=== PATIENT | female | born 1950 | race Caucasian/White ===

== ENCOUNTER → 2020-03-16 12:12 | Outpatient (BNVA) | payer BC, SELFPAY | PROVIDERS: Visit Provider Nurse Practitioner Family | DX: E55.9 Vitamin D deficiency, unspecified (principal); E78.5 Hyperlipidemia, unspecified; K21.9 Gastro-esophageal reflux disease without esophagitis; R13.10 Dysphagia, unspecified; R53.83 Other fatigue | CPT/HCPCS: 80053; 80061; 82306; 84443; 87338 ==

== ENCOUNTER → 2020-03-17 09:34 | Outpatient (BNVA) | payer BC, SELFPAY | PROVIDERS: Visit Provider Nurse Practitioner Family | DX: K21.9 Gastro-esophageal reflux disease without esophagitis (principal) | CPT/HCPCS: 87338 ==

== ENCOUNTER → 2020-04-03 09:19 | Outpatient (BNVA) | payer BC, SELFPAY | PROVIDERS: Visit Provider Nurse Practitioner Family | DX: Z86.2 Personal history of diseases of the blood and blood-forming organs and certain disorders involving the immune mechanism (principal) | CPT/HCPCS: 85025 ==

== ENCOUNTER → 2020-06-04 14:41 | Outpatient (BNVA) | payer MEDICARE, BC, SELFPAY | PROVIDERS: Visit Provider Internal Medicine | DX: Z01.812 Encounter for preprocedural laboratory examination (principal); Z20.828 Contact with and (suspected) exposure to other viral communicable diseases | CPT/HCPCS: 87635 ==

== ENCOUNTER 2020-06-08 07:44 | Day surgery (SDC) | payer MEDICARE, BC, SELFPAY ==
[2020-06-05 14:01] VITALS: BMI 24.3
[2020-06-08 08:16] VITALS: BP 113/74; PULSE 64; RESP 16; TEMP 36.2; O2SAT 99
[2020-06-08] MEDS: sodium chloride 0.9% 1,000 ML 30 ML IV (08:33)
--- NOTE | 2020-06-08 09:48 | ANES.PREANE2 ---
Pre-Anesthetic Assessment Pre-Anesthetic Assessment: Height/Weight: Height 1.65 m Weight 66.224 kg Temp Pulse Resp BP Pulse Ox 97.2 F L 64 16 113/74 99 06/08/20 08:16 06/08/20 08:16 06/08/20 08:16 06/08/20 08:16 06/08/20 08:16 Preop Diagnosis: dbl Proposed Procedure: Operation Date: 06/08/20 09:00 Proposed Procedures p EGD 77464 K21.9(Not Applicable) - Tu Chandra MD s Colonoscopy 42727 Z12.11(Not Applicable) - Tu Chandra MD Was Beta Khoa taken within 24 hours: N/A Last intake: Intake Last Liquid Date 06/07/20 Last Liquid Time 22:00 Last Solid Date 06/06/20 Last Solid Time 22:00 Social: Social History: No alcohol and No tobacco Exam: Pre-Anes Outpt Exam: alert, oriented x 3, clear to auscultation bilaterally and regular rate & rhythm Airway: Submandibular: WNL Cervical ROM: WNL MP: 2 Dentition: Full History/ROS: No significant history except as noted GI: GI: GERD Comments: food sticks Anesthetic Plan: ASA status: 2 Anesthesia: MAC Risk of > 500 ml blood loss (7ml/kg in children): No Meds/Allergies Current Medications: Current Medications Generic Name Dose Route Start Last Admin Trade Name Freq PRN Reason Stop Dose Admin Sodium Chloride 1,000 mls @ 30 ml s/hr 06/08/20 08:00 06/08/20 08:33 Sodium Chloride 0.9% IV 30 mls/hr .Q24H ROBERTA Administration PFSH Anesthesia PFSH: Medical History (Updated 06/04/20 @ 13:42 by Tu Chandra MD) Hiatal hernia Spastic colon Surgical History Hx of cholecystectomy Social History (Updated 06/04/20 @ 13:23 by VERENICE Cobb) Smoking and tobacco status: former smoker Alcohol intake: never Adopted: No Marital status: Number of children: 2 service: No History of recent travel: No Data Anesthesia Cardiac Studies: No Data to Display
--- NOTE | 2020-06-08 09:49 | ANES.PREANE2 ---
Pre-Anesthetic Assessment Pre-Anesthetic Assessment: Height/Weight: Height 1.65 m Weight 66.224 kg Temp Pulse Resp BP Pulse Ox 97.2 F L 64 16 113/74 99 06/08/20 08:16 06/08/20 08:16 06/08/20 08:16 06/08/20 08:16 06/08/20 08:16 Preop Diagnosis: Gerd, screening Proposed Procedure: Operation Date: 06/08/20 09:00 Proposed Procedures p EGD 68408 K21.9(Not Applicable) - Tu Chandra MD s Colonoscopy 43379 Z12.11(Not Applicable) - Tu Chandra MD Was Beta Khoa taken within 24 hours: N/A Last intake: Intake Last Liquid Date 06/07/20 Last Liquid Time 22:00 Last Solid Date 06/06/20 Last Solid Time 22:00 Last Intake: 22:00 Social: Social History: No alcohol and No tobacco Exam: Pre-Anes Outpt Exam: alert, oriented x 3, clear to auscultation bilaterally and regular rate & rhythm Airway: Submandibular: WNL Cervical ROM: WNL MP: 2 Dentition: Full Pulmonary: Pulmonary: None reported CV/HEM: CV/HEM: None reported : : None reported Hepatic: Hepatic: None reported GI: GI: GERD Metabolic: Metabolic: None reported Musc/skel: Musc/skel: None reported Neuropsych: Neuropsych: None reported Anesthetic Plan: ASA status: 2 Anesthesia: MAC Risk of > 500 ml blood loss (7ml/kg in children): No Meds/Allergies Current Medications: Current Medications Generic Name Dose Route Start Last Admin Trade Name Freq PRN Reason Stop Dose Admin Sodium Chloride 1,000 mls @ 30 ml s/hr 06/08/20 08:00 06/08/20 08:33 Sodium Chloride 0.9% IV 30 mls/hr .Q24H ROBERTA Administration PFSH Anesthesia PFSH: Medical History (Updated 06/04/20 @ 13:42 by Tu Chandra MD) Hiatal hernia Spastic colon Surgical History Hx of cholecystectomy Social History (Updated 06/04/20 @ 13:23 by VERENICE Cobb) Smoking and tobacco status: former smoker Alcohol intake: never Adopted: No Marital status: Number of children: 2 service: No History of recent travel: No Data Anesthesia Cardiac Studies: No Data to Display
--- NOTE | 2020-06-08 09:51 | P.HPUD_ITS ---
Surgery/Procedure H&P Update DATE OF PROCEDURE: June 08, 2020 DATE H&P PERFORMED: 06/04/20 PREOP DIAGNOSIS: dbl PLANNED PROCEDURE: Operation Date: 06/08/20 09:00 Proposed Procedures p EGD 99229 K21.9(Not Applicable) - Tu Chandra MD s Colonoscopy 71285 Z12.11(Not Applicable) - Tu Chandra MD
--- NOTE | 2020-06-08 09:51 | W.PM.OPSUD ---
Surgery/Procedure H&P Update DATE OF PROCEDURE: June 08, 2020 DATE H&P PERFORMED: 06/04/20 PREOP DIAGNOSIS: dbl PLANNED PROCEDURE: Operation Date: 06/08/20 09:00 Proposed Procedures p EGD 52134 K21.9(Not Applicable) - Tu Chandra MD s Colonoscopy 34108 Z12.11(Not Applicable) - Tu Chandra MD
[2020-06-08 10:14] VITALS: BP 109/59; PULSE 50; RESP 16; TEMP 36.1; O2SAT 98
[2020-06-08 10:32] VITALS: BP 151/78; PULSE 55; RESP 16; O2SAT 98
--- NOTE | 2020-06-08 12:53 | ANE.PACU2 ---
Inpatient post-anesthesia follow up: Airway intact: Yes Vital signs: Temperature 97 F Pulse Rate 55 Respiratory Rate 16 Blood Pressure 151/78 Pulse Oximetry 98 Oxygen Delivery Me thod Room Air Oxygen Flow Rate Fraction of Inspir ed Oxygen Hydration adequate: Yes Nausea and vomiting: No Pain level: 1 Mental status: Baseline
[2020-06-09 06:08] LABS: H. Pylori / CLO Test Negative
== END 2020-06-08 10:45 | disposition home or self-care (01) ==
PROVIDERS: Visit Provider Internal Medicine
PROC: 0DJ08ZZ Inspection of Upper Intestinal Tract, Via Natural or Artificial Opening Endoscopic (ICD-10-PCS; CPT 43235; principal; 2020-06-08 09:00)
PROC: 0DJD8ZZ Inspection of Lower Intestinal Tract, Via Natural or Artificial Opening Endoscopic (ICD-10-PCS; CPT 45378; 2020-06-08 09:00)
DX: Z12.11 Encounter for screening for malignant neoplasm of colon (principal); K57.30 Diverticulosis of large intestine without perforation or abscess without bleeding; K21.00 Gastro-esophageal reflux disease with esophagitis, without bleeding; K29.71 Gastritis, unspecified, with bleeding; K25.9 Gastric ulcer, unspecified as acute or chronic, without hemorrhage or perforation; Z87.891 Personal history of nicotine dependence
CPT/HCPCS: 12345; 43239; 45378; 87077; J7030

== ENCOUNTER → 2020-06-15 10:01 | Outpatient (BNVA) | payer MEDICARE, BC, SELFPAY | PROVIDERS: Visit Provider Nurse Practitioner Family | DX: E87.1 Hypo-osmolality and hyponatremia (principal); E55.9 Vitamin D deficiency, unspecified; E61.2 Magnesium deficiency; E53.8 Deficiency of other specified B group vitamins; K21.00 Gastro-esophageal reflux disease with esophagitis, without bleeding | CPT/HCPCS: 80048; 82306; 82607; 83735 ==

== ENCOUNTER 2020-06-29 12:39 | Outpatient (CLI) | payer MEDICARE, BC, SELFPAY | END 2020-06-29 12:40 | disposition home or self-care (01) | LOC: LAB 12:44 | PROVIDERS: PCP Internal Medicine; Visit Provider Internal Medicine | DX: R19.5 Other fecal abnormalities (principal) | CPT/HCPCS: 87177; 87209 ==

== ENCOUNTER → 2020-07-23 10:45 | Outpatient (BNVA) | payer MEDICARE, BC, SELFPAY | PROVIDERS: PCP Internal Medicine; Visit Provider Nurse Practitioner Family | DX: E55.9 Vitamin D deficiency, unspecified (principal) | CPT/HCPCS: 82306 ==

== ENCOUNTER → 2020-08-26 14:45 | Outpatient (BNVA) | payer MEDICARE, BC, SELFPAY | PROVIDERS: PCP Nurse Practitioner Family; Visit Provider Nurse Practitioner Family | DX: E55.9 Vitamin D deficiency, unspecified (principal); K21.00 Gastro-esophageal reflux disease with esophagitis, without bleeding | CPT/HCPCS: 82306 ==

== ENCOUNTER → 2020-12-10 10:51 | Outpatient (BNVA) | payer MEDICARE, BC, SELFPAY | PROVIDERS: PCP Nurse Practitioner Family; Visit Provider Nurse Practitioner Family | DX: E55.9 Vitamin D deficiency, unspecified (principal); E87.1 Hypo-osmolality and hyponatremia | CPT/HCPCS: 80053; 82306 ==

== ENCOUNTER → 2021-04-15 09:50 | Outpatient (BNVA) | payer MEDICARE, BC, SELFPAY | PROVIDERS: PCP Nurse Practitioner Family; Visit Provider Nurse Practitioner Family | DX: E78.5 Hyperlipidemia, unspecified (principal); Z13.1 Encounter for screening for diabetes mellitus; R53.83 Other fatigue; E55.9 Vitamin D deficiency, unspecified; D64.9 Anemia, unspecified | CPT/HCPCS: 80053; 80061; 82306; 85025 ==

== ENCOUNTER 2021-12-14 14:54 | Outpatient (CLI) | payer MEDICARE, BC, SELFPAY ==
--- NOTE | 2021-12-14 15:06 | XR_ITS ---
WS: [email or web address] XR hip LT 2-3V wo/w pel* [id number] REASON FOR EXAM: M25.552 - Pain in left hip FINDINGS: No fracture or focal bone lesion. Mild narrowing of the joint space. Mild subchondral sclerosis and osteophyte formation of the acetabulum. Old healed fracture of the superior and inferior pubic ramus at the level of the pubic symphysis. Bony sclerosis at the margins of the pubic symphysis. Most likely degenerative in nature. XR/XR hip LT 2-3V wo/w pel* [id number] IMPRESSION: Mild osteoarthritis of the left hip.
--- NOTE | 2021-12-14 15:06 | XR_ITS ---
WS: [email or web address] XR sinus min 3V* [id number] REASON FOR EXAM: J32.9 - Chronic sinusitis, unspecified FINDINGS: The frontal sinuses are underdeveloped. The frontal sinuses, ethmoid sinuses, right maxillary sinus, and sphenoid sinus are clear and well-ae rated. Soft tissue density projects over the inferior left maxillary sinus. The bony margins of the sinuses are normal. XR/XR sinus min 3V* [id number] IMPRESSION: Abnormal left maxillary sinus. With a history of chronic sinusitis most likely this represents mucosal thickening and possibly inflammatory hyperplastic polyp .
== END 2021-12-14 14:55 | disposition home or self-care (01) ==
LOC: RAD 14:59
PROVIDERS: PCP Nurse Practitioner Family; Visit Provider Nurse Practitioner Family
DX: J32.9 Chronic sinusitis, unspecified (principal); M25.552 Pain in left hip
CPT/HCPCS: 70220; 73502

== ENCOUNTER → 2021-12-15 08:35 | Outpatient (BNVA) | payer MEDICARE, BC, SELFPAY | PROVIDERS: PCP Nurse Practitioner Family; Visit Provider Nurse Practitioner Family | DX: E78.5 Hyperlipidemia, unspecified (principal); E55.9 Vitamin D deficiency, unspecified | CPT/HCPCS: 80053; 80061; 82306 ==

== ENCOUNTER → 2022-01-05 16:11 | Outpatient (BNVA) | payer MEDICARE, BC, SELFPAY | PROVIDERS: PCP Nurse Practitioner Family; Visit Provider Nurse Practitioner Family | DX: R53.83 Other fatigue (principal) | CPT/HCPCS: 81000 ==

== ENCOUNTER → 2022-01-07 10:52 | Outpatient (BNVA) | payer MEDICARE, BC, SELFPAY | PROVIDERS: PCP Nurse Practitioner Family; Visit Provider Nurse Practitioner Family | DX: E86.0 Dehydration (principal); D72.819 Decreased white blood cell count, unspecified; J30.9 Allergic rhinitis, unspecified | CPT/HCPCS: 81000 ==

== ENCOUNTER → 2022-01-10 08:57 | Outpatient (BNVA) | payer MEDICARE, BC, SELFPAY | PROVIDERS: PCP Nurse Practitioner Family; Visit Provider Nurse Practitioner Family | DX: D72.819 Decreased white blood cell count, unspecified (principal); E86.0 Dehydration | CPT/HCPCS: 80053; 85025 ==

== ENCOUNTER → 2022-01-24 08:16 | Outpatient (BNVA) | payer MEDICARE, BC, SELFPAY | PROVIDERS: PCP Nurse Practitioner Family; Visit Provider Nurse Practitioner Family | DX: D72.9 Disorder of white blood cells, unspecified (principal) | CPT/HCPCS: 85025 ==

== ENCOUNTER → 2022-02-14 08:03 | Outpatient (BNVA) | payer MEDICARE, BC, SELFPAY | PROVIDERS: PCP Nurse Practitioner Family; Visit Provider Nurse Practitioner Family | DX: E55.9 Vitamin D deficiency, unspecified (principal) | CPT/HCPCS: 82306; 85025 ==

== ENCOUNTER 2022-02-18 15:58 | Outpatient (CLI) | payer MEDICARE, BC, SELFPAY ==
--- NOTE | 2022-02-18 16:11 | XRR_ITS ---
PROCEDURE INFORMATION: Exam: XR Chest Exam date and time: 02/18/2022 4:14 PM Age: 71 years old Clinical indication: Patient HX: Chronic sinusitis, cough, congestion; Additional info: Chronic maxillary sinusitis TECHNIQUE: Imaging protocol: Radiologic exam of the chest. Views: 2 views. COMPARISON: No relevant prior studies available. FINDINGS: Lungs: Hyperinflated lungs. No consolidation. Pleural spaces: Unremarkable. No pleural effusion. No pneumothorax. Heart/Mediastinum: Unremarkable. No cardiomegaly. Bones/joints: Unremarkable. XR/XR chest 2V* [id number] IMPRESSION: No acute findings.
== END 2022-02-18 15:59 | disposition home or self-care (01) ==
PROVIDERS: PCP Nurse Practitioner Family; Visit Provider Specialist
DX: J32.0 Chronic maxillary sinusitis (principal)
CPT/HCPCS: 71046

== ENCOUNTER → 2022-03-07 08:51 | Outpatient (BNVA) | payer MEDICARE, BC, SELFPAY | PROVIDERS: PCP Nurse Practitioner Family; Visit Provider Nurse Practitioner Family | DX: D72.819 Decreased white blood cell count, unspecified (principal) | CPT/HCPCS: 85025 ==

== ENCOUNTER 2022-03-10 06:53 | Outpatient (CLI) | payer MEDICARE, BC, SELFPAY | END 2022-03-10 06:54 | disposition home or self-care (01) | LOC: RT 06:54 | PROVIDERS: PCP Nurse Practitioner Family; Visit Provider Specialist | DX: J32.0 Chronic maxillary sinusitis (principal) | CPT/HCPCS: 94010; 94726; 94729 ==

== ENCOUNTER → 2023-02-14 10:25 | Outpatient (BNVA) | payer MEDICARE, BC, SELFPAY | PROVIDERS: PCP Nurse Practitioner Family; Visit Provider Nurse Practitioner Family | DX: Z20.822 Contact with and (suspected) exposure to COVID-19 (principal) | CPT/HCPCS: 71046; 87426 ==

== ENCOUNTER → 2023-07-25 15:19 | Outpatient (BNVA) | payer MEDICARE, BC, SELFPAY | PROVIDERS: PCP Nurse Practitioner Family; Visit Provider Nurse Practitioner Family | DX: I10 Essential (primary) hypertension (principal); E55.9 Vitamin D deficiency, unspecified; L75.0 Bromhidrosis | CPT/HCPCS: 80053; 80061; 82306 ==

== ENCOUNTER → 2023-12-29 11:38 | Outpatient (BNVA) | payer MEDICARE, BC, SELFPAY | PROVIDERS: PCP Nurse Practitioner Family; Visit Provider Nurse Practitioner Family | DX: E87.1 Hypo-osmolality and hyponatremia (principal) | CPT/HCPCS: 80053 ==

== ENCOUNTER → 2024-01-10 10:49 | Outpatient (BNVA) | payer MEDICARE, BC, SELFPAY | PROVIDERS: PCP Nurse Practitioner Family; Visit Provider Nurse Practitioner Family | DX: E78.5 Hyperlipidemia, unspecified (principal) | CPT/HCPCS: 80061 ==

== ENCOUNTER 2024-01-16 12:30 | Outpatient (CLI) | payer MEDICARE, BC, SELFPAY ==
--- NOTE | 2024-01-16 13:30 | XR_ITS ---
WS: [email or web address] SCREENING DEXA SCAN [facility] CLINICAL INFORMATION: M81.0 - Age-related osteoporosis without current patholog... COMPARISON: None. FINDINGS: The L1-L4 bone mineral density measures 0.865 g/cm2. This corresponds to a T score score of -2.6 and Z score of -1.0. Left femoral neck bone mineral density measures 0.695 g/cm2. This corresponds to a T score of -2.5 an d Z score of -0.9. Right femoral neck bone mineral density measures 0.628 g/cm2. This corresponds to a T score -3.0of an d Z score of -1.5. Mean femoral neck bone mineral density measures 0.662 g/cm2. This corresponds to a T score of -2.7 an d Z score of -1.2. XR/XR DEXA axial skeleton* [id number] IMPRESSION: Osteoporosis lumbar spine. Osteoporosis femoral necks. Patient's FRAX calculated 10 year probability for major osteoporotic fracture i s 27.2% and osteoporotic hip fracture is 12.4%.
== END 2024-01-16 12:31 | disposition home or self-care (01) ==
LOC: RAD 12:32
PROVIDERS: PCP Nurse Practitioner Family; Visit Provider Nurse Practitioner Family
DX: M81.0 Age-related osteoporosis without current pathological fracture (principal)
CPT/HCPCS: 77080

== ENCOUNTER → 2024-01-24 09:37 | Outpatient (BNVA) | payer MEDICARE, BC, SELFPAY | PROVIDERS: PCP Nurse Practitioner Family; Visit Provider Nurse Practitioner Family | DX: D72.819 Decreased white blood cell count, unspecified (principal); D72.810 Lymphocytopenia | CPT/HCPCS: 85025 ==

== ENCOUNTER 2024-01-31 12:34 | Outpatient (CLI) | payer MEDICARE, BC, SELFPAY ==
--- NOTE | 2024-01-31 12:45 | XR_ITS ---
WS: [email or web address] Examination: XR hip BI m 5V wo/w pel* [id number] Reason for Exam: M25.551 - Pain in right hip Date: January 31, 2024 Comparison: Left hip December 14, 2021 Findings: The bone density is maintained. There is no destruction. There is no fracture or dislocation. The joint spaces appear symmetric Chronic changes at the symphysis pubis is noted. XR/XR hip BI m 5V wo/w pel* [id number] Impression: No acute bony abnormality of either hip is appreciated.
--- NOTE | 2024-01-31 12:45 | XR_ITS ---
WS: [email or web address] Examination: XR cervical spine 3V* [id number] Reason for Exam: M54.2 - Cervicalgia Date: January 31, 2024 Comparison: None. Findings: The MICHELLE and the C1-2 relationship are intact. There is no prevertebral thickening. The vertebral body heights are maintained without wedging or compression. Alignment is satisfactory w ithout subluxation. There is dominant disc space narrowing at C5-6 and C6-7. Small posterior osteophytes are present. XR/XR cervical spine 3V* [id number] Impression: There is no compression or subluxation Dominant degenerative changes are noted at C5-6 and C6-7.
== END 2024-01-31 12:35 | disposition home or self-care (01) ==
LOC: RAD 12:41
PROVIDERS: PCP Nurse Practitioner Family; Visit Provider Nurse Practitioner Family
DX: M50.322 Other cervical disc degeneration at C5-C6 level (principal); M50.223 Other cervical disc displacement at C6-C7 level; M25.78 Osteophyte, vertebrae; M85.30 Osteitis condensans, unspecified site; M25.551 Pain in right hip; M25.552 Pain in left hip
CPT/HCPCS: 72040; 73523

== ENCOUNTER → 2024-02-08 12:52 | Outpatient (BNVA) | payer MEDICARE, BC, SELFPAY | PROVIDERS: PCP Nurse Practitioner Family; Referring Provider Nurse Practitioner Family; Visit Provider Student in an Organized Health Care Education/Training Program | DX: K21.00 Gastro-esophageal reflux disease with esophagitis, without bleeding (principal) | CPT/HCPCS: 99204 ==

== ENCOUNTER 2024-02-18 06:00 | Outpatient (RCR) | payer MEDICARE, BC, SELFPAY | END 2024-03-18 23:59 | disposition home or self-care (01) | LOC: WPT 06:00 | PROVIDERS: PCP Nurse Practitioner Family; Visit Provider Nurse Practitioner Family | DX: M25.552 Pain in left hip (principal) | CPT/HCPCS: 97110; 97162 ==

== ENCOUNTER 2024-03-18 13:21 | Outpatient (CLI) | payer MEDICARE, BC, SELFPAY ==
--- NOTE | 2024-03-18 13:45 | MR_ITS ---
WS: [email or web address] MRI CERVICAL SPINE NONCONTRAST TECHNIQUE: Sagittal T1, T2 and STIR imaging. Axial T2, gradient, and fiesta imaging. CLINICAL INFORMATION: M54.2 - Cervicalgia COMPARISON: None. FINDINGS: Straightening of the normal cervical lordosis. Small disc protrusions in the cervical spine C3-C6 C2-C3: Mild facet arthropathy. Spinal canal and foramen are patent. C3-C4: Mild disc bulging with osteophytic ridging. Mild facet arthropathy. Mild RIGHT bony foraminal narrowing. Spinal canal is patent. C4-C5: Mild disc osteophyte complex with endplate ridging. Moderate to severe LEFT bony foraminal sarah rowing. Mild facet arthropathy. C5-C6: Disc osteophyte complex with endplate ridging. Moderate to severe LEFT and mild to moderate RI GHT bony foraminal narrowing. Moderate facet arthropathy. C6-C7: Disc osteophyte complex with endplate ridging. Moderate facet arthropathy. Mild to moderate LE FT greater than RIGHT bony foraminal narrowing. C7-T1: Normal. Visualized brain stem structures: Normal. Prevertebral soft tissues: Normal. MR/MR cervical spin wo con* [id number] IMPRESSION: 1. Moderate to severe bony foraminal narrowing LEFT C4-C5 and LEFT C5-C6. 2. Mild to moderate bony foraminal narrowing LEFT greater than RIGHT C6-7. 3. Mild RIGHT C5-C6 bony foraminal narrowing. 4. Tiny shallow central protrusions at C3-C6 without significant central canal stenosis.
== END 2024-03-18 13:22 | disposition home or self-care (01) ==
LOC: RAD 13:21
PROVIDERS: PCP Nurse Practitioner Family; Visit Provider Nurse Practitioner Family
DX: M99.61 Osseous and subluxation stenosis of intervertebral foramina of cervical region (principal); M47.892 Other spondylosis, cervical region; M25.78 Osteophyte, vertebrae
CPT/HCPCS: 72141

== ENCOUNTER 2024-03-19 06:00 | Outpatient (RCR) | payer MEDICARE, BC, SELFPAY | END 2024-04-18 23:59 | disposition home or self-care (01) | LOC: WPT 06:00 | PROVIDERS: PCP Nurse Practitioner Family; Visit Provider Nurse Practitioner Family | DX: M25.552 Pain in left hip (principal) | CPT/HCPCS: 97110; 97112; 97530 ==

== ENCOUNTER 2024-04-19 06:00 | Outpatient (RCR) | payer MEDICARE, BC, SELFPAY | END 2024-05-18 23:59 | disposition home or self-care (01) | LOC: WPT 06:00 | PROVIDERS: PCP Nurse Practitioner Family; Visit Provider Nurse Practitioner Family | DX: M25.552 Pain in left hip (principal) | CPT/HCPCS: 97110; 97112; 97530 ==

== ENCOUNTER 2024-04-23 08:12 | Day surgery (SDC) | payer MEDICARE, BC, SELFPAY ==
[2024-04-23 08:29] VITALS: BP 156/86; PULSE 67; RESP 16; TEMP 36.4; O2SAT 99
[2024-04-23] MEDS: sodium chloride 0.9% 1,000 ML 30 ML IV (08:42)
--- NOTE | 2024-04-23 09:30 | W.PM.OPSFHP ---
Same Day Surgery H&P Indication for Procedure/HPI DATE OF PROCEDURE: April 23, 2024 CHIEF COMPLAINT/INDICATIONFOR SURGICAL PROCEDURE: Peptic ulcer disease PREOP DIAGNOSIS: Peptic ulcer disease PLANNED PROCEDURE: Operation Date: 04/23/24 09:15 Proposed Procedures p EGD - 81719, K21.00(Not Applicable) - Rob Sanchez MD Medications/Allergies* Home Medications Medication Instructions Recorded Confirmed Type magnesium 250 mg tablet 250 mg PO DAILY 04/18/24 04/22/24 History Allergies/Adverse Reactions Allergy/AdvReac Type Severity Reaction Status Date / Time codeine Allergy Severe vomiting Verified 04/22/24 09:22 Current Medications: Generic Name Dose Route Start Last Admin Trade Name Freq PRN Reason Stop Dose Admin Sodium Chloride 1,000 mls @ 30 mls/hr 04/23/24 08:30 04/23/24 08:42 Sodium Chloride 0.9% IV 30 mls/hr .Q24H ROBERTA Administration Pertinent History/Comorbid Conditions* Medical History (Updated 04/03/24 @ 13:31 by MURTAZA Sow) Hx of cataract left eye Spastic colon Hiatal hernia Surgical History (Updated 04/03/24 @ 13:30 by MURTAZA Sow) History of esophagogastroduodenoscopy (EGD) Hx of colonoscopy Hx of foot surgery left foot Hx of oral surgery Hx of cholecystectomy Family History (Updated 02/08/24 @ 13:20 by VERENICE Andrade) Heart disease Mother Social History Smoking and tobacco/nicotine status: never used tobacco/nicotine Alcohol intake: never Substance/Drug Use: never Adopted: No Marital status: Number of children: 2 service: No Pertinent Exam Findings alert, oriented x 3, clear to auscultation bilaterally, regular rate & rhythm and procedure specific exam findings Abdomen soft, nt, nd Recommendations Surgery/Procedure today Coding Level of Care Code Acute Code for Chg Fwd
--- NOTE | 2024-04-23 09:42 | ANES.PREANE2 ---
Pre-Anesthetic Assessment Height/Weight: Height 12.7 cm Weight 63.503 kg Temp Pulse Resp BP Pulse Ox O2 Del Method 97.6 F 67 16 156/86 99 Room Air 04/23/24 08:29 04/23/24 08:29 04/23/24 08:29 04/23/24 08:29 04/23/24 08:29 04/23/24 08:29 Preop Diagnosis: Peptic ulcer disease Operation Date: 04/23/24 09:15 Proposed Procedures p EGD - 08514, K21.00(Not Applicable) - Rob Sanchez MD Familial anesthetic complications: hard to wake up sometimes Was Beta Khoa taken within 24 hours: N/A Was Clonidine taken within 24 hours: N/A Last intake: Intake Last Liquid Date 04/22/24 Last Liquid Time 21:00 Last Solid Date 04/22/24 Last Solid Time 17:00 Social No alcohol and No tobacco Exam alert, oriented x 3, clear to auscultation bilaterally and regular rate & rhythm Airway Mallampati: Class I Dentition: chipped CV/HEM Arrythmia Metabolic Hyperlipidemia Anesthetic Plan ASA status: 2 Anesthesia: MAC Risk of > 500 ml blood loss (7ml/kg in children): No Medications/Allergies Home Medications Medication Instructions Recorded Confirmed Last Taken Type magnesium 250 mg tablet 250 mg PO DAILY 04/18/24 04/22/24 04/22/24 History Allergies Allergy/AdvReac Type Severity Reaction Status Date / Time codeine Allergy Severe vomiting Verified 04/22/24 09:22 Current Medications Generic Name Dose Route Start Last Admin Trade Name Freq PRN Reason Stop Dose Admin Sodium Chloride 1,000 mls @ 30 mls/hr 04/23/24 08:30 04/23/24 08:42 Sodium Chloride 0.9% IV 30 mls/hr .Q24H ROBERTA Administration PFSH Anesthesia Medical History (Updated 04/03/24 @ 13:31 by MURTAZA Sow) Hx of cataract left eye Spastic colon Hiatal hernia Surgical History (Updated 04/03/24 @ 13:30 by MURTAZA Sow) History of esophagogastroduodenoscopy (EGD) Hx of colonoscopy Hx of foot surgery left foot Hx of oral surgery Hx of cholecystectomy Family History Mother Heart disease Social History Smoking and tobacco/nicotine status: never used tobacco/nicotine Alcohol intake: never Substance/Drug Use: never Adopted: No Marital status: Number of children: 2 service: No Data Anesthesia Cardiac Studies: No Data to Display
[2024-04-23 10:18] VITALS: BP 138/70; PULSE 62; RESP 20; TEMP 36.1; O2SAT 96
[2024-04-23 10:27] VITALS: BP 145/67; PULSE 61; RESP 16; O2SAT 98
--- NOTE | 2024-04-23 11:10 | ANE.PACU2 ---
Inpatient post-anesthesia follow up: Airway intact: Yes Vital signs: Temperature 97 F Pulse Rate 61 Respiratory Rate 16 Blood Pressure 145/67 Pulse Oximetry 98 Oxygen Delivery Me thod Room Air Oxygen Flow Rate 6 Fraction of Inspir ed Oxygen Hydration adequate: Yes Nausea and vomiting: No Pain level: 1 Mental status: Baseline
== END 2024-04-23 11:10 | disposition home or self-care (01) ==
PROVIDERS: PCP Nurse Practitioner Family; Visit Provider Student in an Organized Health Care Education/Training Program
PROC: 0DJ08ZZ Inspection of Upper Intestinal Tract, Via Natural or Artificial Opening Endoscopic (ICD-10-PCS; CPT 43235; principal; 2024-04-23 09:15)
DX: K21.00 Gastro-esophageal reflux disease with esophagitis, without bleeding (principal); K29.70 Gastritis, unspecified, without bleeding; E78.5 Hyperlipidemia, unspecified
CPT/HCPCS: 43239; 88305; J2704; J7030

== ENCOUNTER 2024-04-29 13:41 | Oncology outpatient (recurring) (ONCR) | payer MEDICARE, BC, SELFPAY ==
[2024-04-29 14:09] LABS: Basophils % 0.6 %; Eosinophils # 0.1 10^3/uL (0.0-0.8); Hematocrit 38.3 % (36-47); Lymphocytes # 3.4 10^3/uL (0.8-4.8); Lymphocytes % 49.1 %; Mean Corpuscular HGB Conc 32.9 g/dL (30-55); Mean Corpuscular Hemoglobin 29.4 pg (27-33); Mean Corpuscular Volume 89.5 fl (85-98); Mean Platelet Volume 10.4 fL (7.4-10.4); Monocytes # 0.4 10^3/uL (0.2-0.9); Monocytes % 5.3 %; Neutrophils % 43.9 %; Nucleated Red Blood Cells % 0 %; Platelet Count 268 10^3/cmm (157-399); Red Blood Count 4.28 10^6/uL (3.85-5.65); Red Cell Distribution Width 13.3 % (12.1-15.1); White Blood Count 6.84 10^3/uL (3.29-11.43)
[2024-04-29 14:34] LABS: Alanine Aminotransferase 10 U/L (0-33); Alkaline Phosphatase 86 U/L (35-105); Anion Gap 11.1 (5-19); Aspartate Amino Transferase 13 U/L (0-32); Blood Urea Nitrogen 11 mg/dL (8-23); Calcium 8.1 mg/dL (8.5-10.5); Carbon Dioxide 27 mmol/L (22-29); Chloride 100 mmol/L (98-107); Creatinine Clr Calc Pharmacy 60.0047; Globulin 2.2 g/dL (1.3-4.6); Glucose 101 mg/dL (65-115); Lactate Dehydrogenase 139 U/L (135-214); Osmolality Calculated 278 mOsm/kg (285-295); Potassium 4.1 mmol/L (3.5-5.1); Sodium 134 mmol/L (136-145); Total Bilirubin 0.2 mg/dL (0.15-1.2); Total Protein 6.2 g/dL (6.6-8.7)
== END 2024-05-18 23:59 | disposition home or self-care (01) ==
PROVIDERS: PCP Nurse Practitioner Family; Visit Provider Internal Medicine Hematology & Oncology
DX: D72.810 Lymphocytopenia (principal); M47.812 Spondylosis without myelopathy or radiculopathy, cervical region; Z87.891 Personal history of nicotine dependence
CPT/HCPCS: 36415; 80053; 83615; 85025; 99214

== ENCOUNTER → 2024-05-06 10:55 | Outpatient (BNVA) | payer MEDICARE, BC, SELFPAY | PROVIDERS: PCP Nurse Practitioner Family; Visit Provider Student in an Organized Health Care Education/Training Program | DX: Z09 Encounter for follow-up examination after completed treatment for conditions other than malignant neoplasm (principal) | CPT/HCPCS: 99213 ==

== ENCOUNTER → 2024-11-14 11:26 | Outpatient (BNVA) | payer MEDICARE, BC, SELFPAY | PROVIDERS: PCP Nurse Practitioner Family; Visit Provider Nurse Practitioner Family | DX: N89.8 Other specified noninflammatory disorders of vagina (principal) | CPT/HCPCS: 87070; 87205; 87255 ==